=== PATIENT | male | born 1965 | race Caucasian/White ===

== ENCOUNTER → 2017-01-30 | Outpatient (CLI) | payer SELFPAY ==
[~2017-01-30] MED LIST: HUMALOG100 UNIT/3 SUB-Q; LEVEMIR FL100 UNIT/1 SUB-Q; LIPITOR10 MG PO; LISINOPRIL-HCT1 EAC2 PO; NEURONTIN800 MG PO; NORCO 5-325 TA1 EACH PO; NOVOLOG FL100 UNIT/1 SUB-Q
== END | disposition disaster alternative care site (69) ==
LOC: GAMB 10:36
DX: E11.65 Type 2 diabetes mellitus with hyperglycemia (principal); M00.9 Pyogenic arthritis, unspecified; Z79.84 Long term (current) use of oral hypoglycemic drugs; R53.1 Weakness
CPT/HCPCS: A0425; A0429